=== PATIENT | male | born 1975 | race Two or more races ===

== ENCOUNTER 2016-08-28 13:22 | Emergency (ER) | payer SELFPAY ==
--- NOTE | ~2016-08-28 | CR110 ---
[facility] A Service of [facility] RADIOLOGY TEXT RESULTS PATIENT: JANETH RAE LOCATION: [place] : 73 UNIT #: [id number] AGE: [address]: Heather Arrington APRN SEX: M ORDER DR: [id number] [facility] [address] [place], [place] [address] [id number] MR#: [id number] Acc #: [id number] NAME: JANETH RAE : 1975 SEX: M STUDY DATE/TIME: 08/28/2016 13:08 UNIT: CFTX ROOM: STUDY DESCRIPTION: CR Finger 2 View 3rd Lt Attending Physician: Heather Arrington A.P.R.N. Ordering Physician: Ed Az Nguyen M.D. Primary Care Physician: No Primary Care Physician MEDICAL IMAGING REPORT This report is preliminary unless electronic signature is present ALL 4 BLANKS BELOW REGARDING INJURED FINGER. Is it the 2nd finger or 3rd finger? EXAM 3 views of the left third finger, 08/28/2016. HISTORY Left third digit laceration with severe pain since mashed between door earlier today. COMPARISON None FINDINGS There is a comminuted displaced fracture involving the tuft of the distal phalanx of the left third finger with overlying laceration defect and subcutaneous air. No interarticular fracture extension is seen. There is no joint dislocation. IMPRESSION Displaced comminuted fracture of the tuft of the distal phalanx left third finger. Open soft tissue wound. Dictated by... Zena Tillman M.D. THIS IS AN ELECTRONICALLY VERIFIED REPORT Zena Tillman M.D. at 09/01/2016 7:11 AM OK/cm TD: 08/28/2016 17:17 [facility] A Service of [facility] RADIOLOGY TEXT RESULTS PATIENT: JANETH RAE LOCATION: [place] : 73 UNIT #: [id number] AGE: [address]: Heather Arrington APRN SEX: M ORDER DR: JOB #: [id number] MEDICAL IMAGING REPORT Page 1 of 1 COPY
[~2016-08-28 13:22] MED LIST: ANUSOL30 G1 EXT; BACTRIM 400-801 TA1 PO; COLACE PO; IBUPROFEN; KEFLEX500 M2 PO; TRAMADOL HCL50 M1 PO
== END 2016-08-28 13:55 ==
LOC: CFTX 13:22
DX: S68.123A Partial traumatic metacarpophalangeal amputation of left middle finger, initial encounter (principal); S67.193A Crushing injury of left middle finger, initial encounter; W23.0XXA Caught, crushed, jammed, or pinched between moving objects, initial encounter; Y92.009 Unspecified place in unspecified non-institutional (private) residence as the place of occurrence of the external cause
CPT/HCPCS: 64450; 73140; 99285